=== PATIENT | male | born 1980 | race Two or more races ===

== ENCOUNTER 2018-10-30 15:06 | Emergency (ER) | payer MEDICAID ==
[2018-10-30] MEDS ORDERED: Sodium Chloride 0.9% 1,000 ML IV ONE (15:30)
--- NOTE | 2018-10-30 15:36 | ED Physician Chart ---
ED Chief Complaint/HPI - Patient Information Date Seen:: 10/30/18 Time Seen:: 15:15 Chief Complaint:: Abdominal Pain History of Present Illness:: onset x 2 days of intermittent, dull, crampy, diffuse abdominal pain, N/V/D x 3 ; pt denies trauma, LOC, ALOC, AMS, H/As, S/T, neck pain, cough, C/P, SOB, A/C, fever, chills, or urinary s/s; pt is eating and urinating well; pt last urinated one hour RESP THERAPIST Allergies:: Allergies Allergy/AdvReac Type Severity Reaction Status Date / Time No Known Allergies Allergy Verified 10/30/18 15:14 Vitals:: Vital Signs - 8 hr 10/30/18 15:15 Temp 97.8 F HR 71 RR 16 BP 119/76 O2 Sat % 97 Historian:: Patient Review:: Nurse's Note Reviewed, Old Chart Reviewed ED Review of Systems - Review of Systems General/Constitutional: No fever, No chills, No weight loss, No weakness, No diaphoresis, No edema, No loss of appetite Skin: No skin lesions, No rash, No bruising Head: Headache, No light-headedness Eyes: No loss of vision, No pain, No diplopia ENT: No earache, No nasal drainage, No sore throat, No tinnitus Neck: No neck pain, No swelling, No thyromegaly, No stiffness, No mass noted Cardio Vascular: No chest pain, No palpitations, No PND, No orthopnea, No edema Pulmonary: No SOB, No cough, No sputum, No wheezing GI: No nausea, No vomiting, No diarrhea, No pain, No melena, No hematochezia, No constipation, No hematemesis G/U: No dysuria, No frequency, No hematuria, No nacturia Musculoskeletal: No bone or joint pain, No back pain, No muscle pain Endocrine: No polyuria, No polydipsia Psychiatric: No prior psych history, No depression, No anxiety, No suicidal ideation, No homicidal ideation, No auditory hallucination, No visual hallucination Hematopoietic: No bruising, No lymphadenopathy Allergic/Immuno: No urticaria, No angioedema Neurological: No syncope, No focal symptoms, No weakness, No paresthesia, Headache, No seizure, Dizziness, No confusion, Vertigo ED Past Medical History - Past Medical History Obtainable: Yes Past Medical History: No significant medical hx Family History: None Social History: Non Smoker, No Alcohol, No Drug Use, Single, Employed Surgical History: None Psychiatricy History: None Medication: Reviewed Family Medical History - Family Member Mother History Unknown: Yes ED Physical Exam - Physical Examination General/Constitutional: Awake, Well-developed, well-nourished, Alert, No distress, GCS 15, Non-toxic appearing, Ambulatory Head: Atraumatic Eyes: Lids, conjuctiva normal, PERRL, EOMI Other Eyes comments:: PERRLA; Fundi: benign; EOMs: WNL Skin: Nl inspection, No rash, No skin lesions, No ecchymosis, Well hydrated, No lymphadenopathy Other Skin comments:: good turgor with MMM ENMT: External ears, nose nl, TM canals nl, Nasal exam nl, Lips, teeth, gums nl , Oropharynx nl, Tonsils nl Other ENMT comments:: TMJs: WNL Neck: Nontender, Full ROM w/o pain, No JVD, No nuchal rigidity, No bruit, No mass, No stridor Other Neck comments:: supple; no meningeal signs; no cervical tenderness; no bruits Respiratory: Nl effort/Exclusion, Clear to Auscultation, No Wheeze/Rhonchi/Rales Cardio Vascular: RRR, No murmur, gallop, rubs, NL S1 S2, Carotid/Femoral/Distal pulses equal bilaterally GI: No tenderness/rebounding/guarding, No organomegaly, No hernia, Normal BS's, Nondistended, No mass/bruits, No McBurney tenderness, Rectum exam nl Other GI comments:: no pulsatile masses; Stool: - OB; + Reducible Left Inguinal Hernia : No CVA tenderness Extremities: No tenderness or effusion, Full ROM, normal strength in all extremities, No edema, Normal digits & nails Neuro/Psych: Alert/oriented, DTR's symmetric, Normal sensory exam, Normal motor strength, Judgement/insight normal, Mood normal, Normal gait, No focal deficits Other Neuro/Psych comments:: no focal signs Misc: Normal back, No paraspinal tenderness ED Labs/Radiology/EKG Results - Lab Results Comments:: Reviewed - Radiology Results Comments:: + Diverticulosis; Left Inguinal Hernia - EKG Interpretations EKG Time:: 15:39 Rate & Rhythm: 64; NSR Comments:: non-specific st-t changes ED Septic Shock - . Is Septic Shock (SBP<90, OR Lactate>4 mmol\L) present?: No - <6hrs of presentation: Vital Signs: Vital Signs - 8 hr 10/30/18 15:15 Temp 97.8 F HR 71 RR 16 BP 119/76 O2 Sat % 97 ED Reassessment (Disposition) - Reassessment Reassessment:: pt chose to sign out AMA; pt tolerated po fluids well in ER; pt is asymptomatic upon discharge/AMA Reassessment Condition:: Improved - Diagnosis Diagnosis:: Abdominal Pain; N/V/D; AGE; UTI; Diverticulosis; Left Inguinal Hernia; Headaches ; Vascular Cephalgia; BPV; Dizziness-resolved; Left Basal Lung Nodules; Possible Nephrolithiasis - Aftercare/Follow up Instructions Aftercare/Follow-Up Instructions:: Counseled pt regarding lab results/diagnosis & need follow up, Refer to Discharge Instructions, Counseled pt & family regarding lab results/diagnosis & need follow up Medication Prescribed:: Rx: Doxycycline 100mg po bid x 10 days; Tylenol 500mg po qid prn fever/pain; Urine Strainer: Strain all Urine; encourage fluids especially citric acid juices ; take all medications as prescribed - Patient Disposition Discharge/Transfer:: Against Medical Advice Condition at Disposition:: Stable, Improved (X-Rays Instructions; RTER prn if existing s/s reoccur and/or get worse and/or any other new s/s occur; ACIs given for all above Dx; Refer to GI Specialist/ Specialist/Urologist/ Coronary Care Unit Nurse/Neurologist/ENT Specialist/GI-Hernia Surgeon/Baccarat Dealer TIERNEY; F/U with PMD Today or prn; RTER prn if concerned)
[2018-10-30 15:43] LABS: % BASOPHILS 0.6 % (0.0-2.0); % EOSINOPHILS 1.5 % (0.0-5.0); % MONOCYTES 5.3 % (2.0-10.0); % NEUTROPHILS 77.6 % (40.0-80.0); BASOPHILE ABSOLUTE 0.1 Th/cumm (0-0.2); EOSINOPHILE ABSOLUTE 0.1 Th/cmm (0.1-0.4); HEMATOCRIT 41.6 % (41.0-60); HEMOGLOBIN 13.8 gm/dL (12-16); LYMPHOCYTE ABSOLUTE 1.5 Th/cmm (1.5-3.0); MEAN CELL VOLUME 89.8 fl (80-99); MEAN CORPUSCULAR HEMOGLOBIN 29.8 pg (26.0-30.0); MEAN CORPUSCULAR HGB CONC 33.2 pg (28.0-36.0); MONOCYTE ABSOLUTE 0.5 Th/cmm (0.3-1.0); NEUTROPHILE ABSOLUTE 7.5 Th/cmm (1.8-8.0); PLATELET COUNT 265 Th/cmm (150-400); RED BLOOD COUNT 4.63 Mil/cmm (4.30-5.70); RED CELL DISTRIBUTION WIDTH 12.7 % (11.5-20.0); WHITE BLOOD COUNT 9.7 Th/cmm (4.8-10.8)
[2018-10-30 15:54] LABS: URINE SOURCE CLEAN C
[2018-10-30 15:55] LABS: URINE BILIRUBIN NEGATIVE (NEGATIVE); URINE BLOOD NEGATIVE (NEGATIVE); URINE GLUCOSE (UA) NEGATIVE (NEGATIVE); URINE KETONE TRACE mg/dL (NEGATIVE); URINE LEUKOCYTE ESTERASE NEGATIVE (NEGATIVE); URINE NITRATE NEGATIVE (NEGATIVE); URINE PROTEIN NEGATIVE (NEGATIVE); URINE UROBILINOGEN 0.2 E.U./dL (0.2 - 1.0)
[2018-10-30 15:59] LABS: URINE CLARITY CLEAR (CLEAR); URINE COLOR YELLOW; URINE MICROSCOPIC INDICATED? YES
[2018-10-30 16:00] LABS: ALB/GLOB RATIO 1.5 (1.0-1.8); ALBUMIN 4.2 gm/dL (4.2-5.5); ALKALINE PHOSPHATASE 96 U/L (34-104); AMYLASE SERUM 27 U/L (29-103); ANION GAP 14.1 (7.0-16.0); BILIRUBIN,TOTAL 0.5 mg/dL (0.3-1.0); BUN - UREA NITROGEN 11 mg/dL (7-25); CARBON DIOXIDE 25.7 mEq/L (21.0-31.0); CHLORIDE 100 mEq/L (98-107); CREATININE - SERUM 0.9 mg/dL (0.7-1.3); GFR AFRICAN-AMERICAN > 60.0 ml/min (>90); GFR NON AFRICAN-AMERICAN > 60.0 ml/min; GLUCOSE 103 mg/dL (70-105); LIPASE 11 U/L (11-82); POTASSIUM SERUM 3.8 mEq/L (3.5-5.1); SGOT 23 U/L (13-39); SGPT/ALT 41 U/L (7-52); SODIUM SERUM 136 mEq/L (136-145)
[2018-10-30 16:07] LABS: URINE BACTERIA FEW /hpf (NONE SEEN); URINE EPITHELIAL CELLS OCCASIONAL /lpf (FEW); URINE RBC 0-2 /hpf (0-5)
[2018-10-30] MEDS ORDERED: cefTRIAXone 1 GM in Sodium Chloride 0.9% 50 ML IV ONE (16:27)
[2018-10-30] MEDS ORDERED: IOHEXOL 300mgI/mL 100 ML VIAL ONE (16:30)
--- NOTE | 2018-10-31 09:52 | Diagnostic Imaging Report ---
CT abdomen and pelvis with intravenous contrast Indication: Abdominal pain, nausea and vomiting, rule out appendicitis Comparison: None, Technique: Axial images were obtained from the lung bases to the bilateral proximal femurs with IV contrast. Coronal reconstructions were made. total DLP: 548, CTDI10.8 FINDINGS: Hypoventilatory atelectatic changes of the lung bases are noted. No focal hepatic lesions. There is fatty infiltration of the liver. No focal splenic, pancreatic, or adrenal lesions. Most of hydronephrosis or focal renal lesions. Distended urinary bladder is noted. Small fat-containing left inguinal hernia is noted. Diverticulosis is noted without diverticulitis. No evidence of appendicitis. No free fluid or free air. Mild degenerative changes of spine are noted. IMPRESSION: No evidence of acute appendicitis. Diverticulosis without diverticulitis. Distended urinary bladder. Small fat-containing left inguinal hernia Hepatic steatosis.
== END 2018-10-30 18:49 | disposition left against medical advice (07) ==
LOC: ER 15:06
DX: K52.9 Noninfective gastroenteritis and colitis, unspecified (principal); N39.0 Urinary tract infection, site not specified; K57.90 Diverticulosis of intestine, part unspecified, without perforation or abscess without bleeding; K40.90 Unilateral inguinal hernia, without obstruction or gangrene, not specified as recurrent; G44.1 Vascular headache, not elsewhere classified; R91.1 Solitary pulmonary nodule
CPT/HCPCS: 99284; 96365; 96375; 93005; 74177; 84484; 36415; 85025; 87086; 81001; 82150; 83690; 80053; J1885; J2405; J0696; J7030; Q9967

== ENCOUNTER 2018-10-31 02:06 | Emergency (ER) | payer MEDICAID ==
[2018-10-31] MEDS ORDERED: Sodium Chloride 0.9% 1,000 ML IV ONE ×2 (02:28→02:37)
--- NOTE | 2018-10-31 02:31 | ED Physician Chart ---
ED Chief Complaint/HPI - Patient Information Date Seen:: 10/31/18 Time Seen:: 02:28 Chief Complaint:: abd pain nv History of Present Illness:: 31 yr old male with nv for few days here for evaluation Allergies:: Allergies Allergy/AdvReac Type Severity Reaction Status Date / Time No Known Allergies Allergy Verified 10/30/18 15:14 ED Review of Systems - Review of Systems General/Constitutional: No fever, No chills, No weight loss, No weakness, No diaphoresis, No edema, No loss of appetite Skin: No skin lesions, No rash, No bruising Head: No headache, No light-headedness Eyes: No loss of vision, No pain, No diplopia ENT: No earache, No nasal drainage, No sore throat, No tinnitus Neck: No neck pain, No swelling, No thyromegaly, No stiffness, No mass noted Cardio Vascular: No chest pain, No palpitations, No PND, No orthopnea, No edema Pulmonary: No SOB, No cough, No sputum, No wheezing GI: Nausea, Vomiting, Pain G/U: No dysuria, No frequency, No hematuria Musculoskeletal: No bone or joint pain, No back pain, No muscle pain Endocrine: No polyuria, No polydipsia Psychiatric: No prior psych history, No depression, No anxiety, No suicidal ideation Hematopoietic: No bruising, No lymphadenopathy Allergic/Immuno: No urticaria, No angioedema Neurological: No syncope, No focal symptoms, No weakness, No paresthesia, No headache, No seizure, No dizziness, No confusion, No vertigo ED Past Medical History - Past Medical History Past Medical History: No significant medical hx Family Medical History - Family Member Mother History Unknown: Yes ED Physical Exam - Physical Examination General/Constitutional: Awake, Well-developed, well-nourished, Alert, No distress, GCS 15, Non-toxic appearing, Ambulatory Head: Atraumatic Eyes: Lids, conjuctiva normal, PERRL, EOMI Skin: Nl inspection, No rash, No skin lesions, No ecchymosis, Well hydrated, No lymphadenopathy ENMT: External ears, nose nl, Nasal exam nl, Lips, teeth, gums nl Neck: Nontender, Full ROM w/o pain, No JVD, No nuchal rigidity, No bruit, No mass, No stridor Respiratory: Nl effort/Exclusion, Clear to Auscultation, No Wheeze/Rhonchi/Rales Cardio Vascular: RRR, No murmur, gallop, rubs, NL S1 S2 Other GI comments:: abd tenderness : No CVA tenderness Extremities: No tenderness or effusion, Full ROM, normal strength in all extremities, No edema, Normal digits & nails Neuro/Psych: Alert/oriented, DTR's symmetric, Normal sensory exam, Normal motor strength, Judgement/insight normal, Mood normal, Normal gait, No focal deficits Misc: Normal back, No paraspinal tenderness ED Assessment - Assessment General Assessment: abd pain nv ED Septic Shock - . Is Septic Shock (SBP<90, OR Lactate>4 mmol\L) present?: No ED Reassessment (Disposition) - Reassessment Reassessment:: abd pain nv - Diagnosis Diagnosis:: abd pain r/o kidney stone - Patient Disposition Condition at Disposition:: Stable
[2018-10-31] MEDS ORDERED: cefTRIAXone 2 GM in Sodium Chloride 0.9% 100 ML IV ONE (02:38)
[2018-10-31 03:23] LABS: ALB/GLOB RATIO 1.5 (1.0-1.8); ALKALINE PHOSPHATASE 89 U/L (34-104); BILIRUBIN,TOTAL 0.4 mg/dL (0.3-1.0); BUN - UREA NITROGEN 16 mg/dL (7-25); CALCIUM SERUM 8.7 mg/dL (8.6-10.3); CARBON DIOXIDE 24.1 mEq/L (21.0-31.0); CHLORIDE 106 mEq/L (98-107); GFR AFRICAN-AMERICAN > 60.0 ml/min (>90); GFR NON AFRICAN-AMERICAN > 60.0 ml/min; GLUCOSE 96 mg/dL (70-105); POTASSIUM SERUM 4.1 mEq/L (3.5-5.1); SGOT 16 U/L (13-39); SGPT/ALT 34 U/L (7-52); SODIUM SERUM 140 mEq/L (136-145); TOTAL PROTEIN,SERUM 6.6 gm/dL (6.0-8.3)
[2018-10-31 03:24] LABS: AMYLASE SERUM 30 U/L (29-103); LIPASE 24 U/L (11-82)
[2018-10-31 03:34] LABS: HEMOGLOBIN 13.4 gm/dL (12-16); RED BLOOD COUNT 4.49 Mil/cmm (4.30-5.70); WHITE BLOOD COUNT 7.4 Th/cmm (4.8-10.8)
[2018-10-31 03:35] LABS: % BASOPHILS 3.4 % (0.0-2.0); % EOSINOPHILS 3.6 % (0.0-5.0); % LYMPHOCYTES 30.2 % (20.0-50.0); % MONOCYTES 5.4 % (2.0-10.0); % NEUTROPHILS 57.4 % (40.0-80.0); EOSINOPHILE ABSOLUTE 0.3 Th/cmm (0.1-0.4); LYMPHOCYTE ABSOLUTE 2.2 Th/cmm (1.5-3.0); MEAN CELL VOLUME 88.9 fl (80-99); MEAN CORPUSCULAR HEMOGLOBIN 29.7 pg (26.0-30.0); MEAN CORPUSCULAR HGB CONC 33.4 pg (28.0-36.0); MONOCYTE ABSOLUTE 0.4 Th/cmm (0.3-1.0); NEUTROPHILE ABSOLUTE 4.2 Th/cmm (1.8-8.0); PLATELET COUNT 246 Th/cmm (150-400); RED CELL DISTRIBUTION WIDTH 12.4 % (11.5-20.0)
[2018-10-31 03:36] LABS: BASOPHILE ABSOLUTE 0.3 Th/cumm (0-0.2)
== END 2018-10-31 04:48 | disposition home or self-care (01) ==
LOC: ER 02:06
DX: R10.9 Unspecified abdominal pain (principal); R11.2 Nausea with vomiting, unspecified
CPT/HCPCS: 99283; 96365; 96375; 36415; 83605; 85025; 82150; 83690; 80053; 87040 ×2; J1885; J2405; J0696; J7030; Z7502